=== PATIENT | male | born 1980 | race Caucasian/White ===

== ENCOUNTER 2017-02-10 09:31 | Emergency (ER) | payer OTHER ==
[~2017-02-10] VITALS: Ht 205.7 cm; Wt 122.5 kg
[2017-02-10 09:48] VITALS: BP 158/110
[2017-02-10] MEDS ORDERED: HYDROcodone/APAP 5/325MG 1 TAB TABLET PO ONE (10:00)
--- NOTE | 2017-02-10 10:20 | PHYS DOC ---
Past Medical History Past Medical History: No Pertinent History Past Surgical History: No Surgical History Alcohol Use: Heavy Drug Use: None Adult General Chief Complaint Chief Complaint: LOWER EXT PAIN [facility] HPI Patient is a 37 year old male presents to emergency Department stating approximately one week ago he had a rash in his left inguinal area. He states that the rash eventually went away on its own. He states that within the last 3 or 4 days the rash has returned he states that this morning he woke up and had severe pain in the left inguinal area. Patient states that the pain is a 1 out of a 10 at this time however whenever he moves or the area is touched the pain goes up to approximately an 8. Patient states he has not really taken anything for the pain and discomfort. He denies any problems with urination he denies any penile drainage. He denies being concerned for STDs. Patient denies any fever, chills or any nausea or vomiting. Review of Systems Review of Systems Constitutional: Denies fever or chills [] Eyes: Denies change in visual acuity, redness, or eye pain [] HENT: Denies nasal congestion or sore throat [] Respiratory: Denies cough or shortness of breath [] Cardiovascular: No additional information not addressed in HPI [] GI: Denies abdominal pain, nausea, vomiting, bloody stools or diarrhea [] : Denies dysuria or hematuria. Pain in the left inguinal area. Musculoskeletal: Denies back pain or joint pain [] Integument: rash denies skin lesions [] Neurologic: Denies headache, focal weakness or sensory changes [] Endocrine: Denies polyuria or polydipsia [] Current Medications Current Medications Current Medications Medications (Trade) Dose Ordered Sig/[facility] Start Time Stop Time Status Last Admin Dose Admin Acetaminophen/ Hydrocodone Bitart (Lortab 5/325) 2 tab 1X ONCE 02/10/17 10:00 02/10/17 10:01 DC 02/10/17 10:31 2 TAB Allergies Allergies Allergies Coded Allergies Type Severity Reaction Last Updated Verified No Known Drug Allergies 08/10/13 No Physical Exam Physical Exam Constitutional: Well developed, well nourished, no acute distress, non-toxic appearance. [] HENT: Normocephalic, atraumatic, bilateral external ears normal, oropharynx moist, no oral exudates, nose normal. [] Eyes: PERRLA, EOMI, conjunctiva normal, no discharge. [] Neck: Normal range of motion, no tenderness, supple, no stridor. [] Cardiovascular:Heart rate regular rhythm, no murmur [] Lungs & Thorax: Bilateral breath sounds clear to auscultation [] Abdomen: Bowel sounds normal, soft, no tenderness, no masses, no pulsatile masses. [] Skin: Warm, dry, no erythema, patient with a red raised rash noted in the left inguinal area. This area appears to be in a circular type appearance. Tenderness noted upon palpation. No abscesses noted. No drainage or discharge noted. Back: No tenderness Extremities: No tenderness, no cyanosis, no clubbing, ROM intact, no edema. [] Neurologic: Alert and oriented X 3, normal motor function, normal sensory function, no focal deficits noted. [] Psychologic: Affect normal, judgement normal, mood normal. [] Current Patient Data Vital Signs Vital Signs Date Time Temp Pulse Resp B/P (MAP) Pulse Ox O2 Delivery O2 Flow Rate FiO2 02/10/17 10:31 16 02/10/17 09:48 97.4 85 98 Room Air 97.4 Lab Values Laboratory Tests Test 02/10/17 11:31 Urine Collection Type Unknown Urine Color Yellow Urine Clarity Clear Urine pH 6.0 Urine Specific [place] 1.020 Urine Protein Negative mg/dL (NEG-TRACE) Urine Glucose (UA) Negative mg/dL (NEG) Urine Ketones (Stick) Negative mg/dL (NEG) Urine Blood Negative (NEG) Urine Nitrite Negative (NEG) Urine Bilirubin Negative (NEG) Urine Urobilinogen Dipstick 0.2 mg/dL (0.2 mg/dL) Urine Leukocyte Esterase Negative (NEG) Urine RBC 0 /HPF (0-2) Urine WBC 0 /HPF (0-4) Urine Squamous Epithelial Cells Occ /LPF Urine Bacteria 0 /HPF (0-FEW) Urine Mucus Marked /LPF EKG EKG [] Radiology/Procedures Radiology/Procedures [][facility] [address] [place] [address] IMAGING REPORT Signed PATIENT: PHOENIX ALATORRE ACCOUNT: [id number] : 1980 LOCATION: ER AGE: 37 SEX: M EXAM STATUS: REG ER ORD. PHYSICIAN: AGATA PRESLEY APRN REASON: pain and tenderness LT INNER UPPER THIGH, INGUINAL CREASE PROCEDURE: EXT NON VASC LTD LEFT Left upper thigh ultrasound, 02/10/2017: History: Swelling and rash The area of clinical concern in the upper inner thigh near the scrotum extending into the inguinal region was carefully scanned. There is subcutaneous edema in this region. No discrete fluid collection or mass is identified. No inguinal hernia was identified. IMPRESSION: Nonspecific subcutaneous edema without evidence of a mass or drainable abscess. DICTATED and SIGNED BY: KATH MEHTA MD DATE: 02/10/17 1110 CC: AGATA PRESLEY APRN; NO PCP; NON,STAFF ~ Course & Med Decision Making Course & Med Decision Making Pertinent Labs and Imaging studies reviewed. (See chart for details) Patient was provided with ultrasound findings as showing swelling and edematous. Patient will be discharged home with antifungal's to help with the ringworm. Also recommended ice packs on 20 minutes off 20 minutes several times a day. Tylenol or ibuprofen for pain and discomfort. Also recommended following up with primary care physician in the next 3-5 days. Signs and symptoms to return back to emergency department as been provided. [] Dragon Disclaimer Dragon Disclaimer This electronic medical record was generated, in whole or in part, using a voice recognition dictation system. Departure Departure Impression: Primary Impression: Ringworm Disposition: 01 HOME, SELF-CARE Condition: STABLE Referrals: NO PCP (PCP) Patient Instructions: Body Ringworm Additional Instructions: Activity as tolerated Medication as prescribed Ibuprofen 600-800 mg every 8 hours with food stop taking if you develop upset stomach Ice packs on 20 minutes off 20 minutes several times a day Keep the area clean an dry Followup with primary care provider in 3-5 days Return to emergency department as needed for signs and symptoms that become worse. Scripts Clotrimazole (CLOTRIMAZOLE) 15 Gm Cream..g. 1 AKASH TP BID, #30 GM Prov: AGATA PRESLEY APRN 02/10/17 AGATA PRESLEY APRN Feb 10, 2017 10:20
--- NOTE | 2017-02-10 11:15 | RAD ---
Left upper thigh ultrasound, 02/10/2017: History: Swelling and rash The area of clinical concern in the upper inner thigh near the scrotum extending into the inguinal region was carefully scanned. There is subcutaneous edema in this region. No discrete fluid collection or mass is identified. No inguinal hernia was identified. IMPRESSION: Nonspecific subcutaneous edema without evidence of a mass or drainable abscess.
[2017-02-10 11:41] LABS: BILIRUBIN,URINE NEGATIVE (NEG); GLUCOSE,URINE NEGATIVE (NEG); NITRITE,URINE NEGATIVE (NEG); PROTEIN,URINE NEGATIVE (NEG-TRACE); UROBILINOGEN,URINE 0.2 mg/dL (0.2 mg/dL)
[2017-02-10 12:00] LABS: BACTERIA,URINE 0 /HPF (0-FEW); RBC,URINE 0 /HPF (0-2); SQUAMOUS EPITHELIAL CELL,UR OCC /LPF; WBC,URINE 0 /HPF (0-4)
[2017-02-10] MEDS ORDERED: CLOT15CR4 TP (12:24)
== END 2017-02-10 12:42 | disposition home or self-care (01) ==
LOC: ER 09:31
DX: B35.9 Dermatophytosis, unspecified (principal)
CPT/HCPCS: 76882; 81001; 87491; 87591; 99285-25

== ENCOUNTER 2020-01-20 09:20 | Emergency (ER) | payer SELFPAY ==
[~2020-01-20] VITALS: Ht 203.2 cm; Wt 122.7 kg
[~2020-01-20 09:20] MED LIST: CLOT15CR23 TP
[2020-01-20] MEDS ORDERED: DIPH,PERTUSS(ACELL),TET VAC/PF 0.5 ML SYRINGE. VAX IM ONE (10:00)
[2020-01-20] MEDS ORDERED: MUPIROCIN 2 % TOPICAL CREAM 30GM TUBE. TP ONE (10:00)
[2020-01-20] MEDS ORDERED: fentaNYL PF VIAL 100 MCG/2 ML VIAL IM ONE (10:00)
[2020-01-20] MEDS ORDERED: OXYC1TAB15 PO (10:38)
[2020-01-20] MEDS ORDERED: MUPI22OI2 TP (10:38)
--- NOTE | 2020-01-20 10:39 | PHYS DOC ---
Past Medical History Past Medical History: No Pertinent History, Other Past Surgical History: No Surgical History Smoking Status: Current Every Day Smoker Additional Information: 1 PPD Alcohol Use: Heavy Additional Information: DRINKS "FEW DRINKS DAILY" Drug Use: None General Adult EDM: Chief Complaint: LOWEREXTREMITY INJURY HPI: HPI: Patient is a 40 year old male presents with his father with report of right lower ankle pain and swelling. Patient reports was playing football while on a float trip and ended up stepping on some loose gravel causing him to twist the ankle and fall backwards. Patient was subsequently seen in emergency department at "[facility] "in [place], [place]. Reports he was diagnosed with a "distal tibia fracture" and placed in a splint and given crutches and a Rx for hydrocodone. Reports he has several abrasions and cuts on his leg. Reports "they didn't know what they were doing". Reports they closed all the dirt and "[place] water" bugs into the splint with him. Denies fev er/chills. Denies head trauma or neck pain. Review of Systems: Review of Systems: Constitutional: Denies fever or chills Eyes: Denies redness or eye pain HENT: Denies nasal congestion or sore throat Respiratory: Denies cough or shortness of breath Cardiovascular: Denies chest pain or palpitations GI: Denies abdominal pain, nausea, or vomiting : Denies dysuria or hematuria Musculoskeletal: Reports right ankle pain, swelling, and bruising Integument: Reports abrasions to right leg Neurologic: Denies headache, focal weakness or sensory changes Complete systems were reviewed and found to be within normal limits, except as documented in this note. Current Medications: Current Medications Medications (Trade) Dose Ordered Sig/[facility] Start Time Stop Time Status Last Admin Dose Admin Diphtheria/ Tetanus/Acell Pertussis (ADACEL TDap SYRINGE) 0.5 ml ONCE ONCE 01/20/20 10:00 01/20/20 10:01 DC 01/20/20 10:15 0.5 ML Fentanyl Citrate (Fentanyl 2ml Vial) 75 mcg 1X ONCE 01/20/20 10:00 01/20/20 10:01 DC 01/20/20 10:04 75 MCG Mupirocin (Bactroban) 1 nhan 1X ONCE 01/20/20 10:00 01/20/20 10:01 DC 01/20/20 10:14 1 NHAN Allergies: Allergies: Allergies Coded Allergies Type Severity Reaction Last Updated Verified No Known Drug Allergies 08/10/13 No Physical Exam: PE: Constitutional: Well developed, well nourished, no acute distress, non-toxic appearance HENT: Normocephalic, atraumatic Eyes: Conjunctiva normal, no discharge Neck: Normal range of motion, no tenderness, supple Cardiovascular: Right PT and DP pulses +2, CR < 2 sec Lungs & Thorax: No respiratory distress, equal chest rise and fall Skin: Warm, dry, scattered abrasions to right lower leg, no signs of cellulitis noted, ecchymosis to right ankle Extremities: Right lateral malleolar tenderness, significant swelling noted, neurovascularly intact. No proximal fibular tenderness noted Neurologic: Alert and oriented X 3, no focal deficits noted Psychologic: Affect normal, judgment normal Current Patient Data: Vital Signs: Vital Signs Date Time Temp Pulse Resp B/P (MAP) Pulse Ox O2 Delivery O2 Flow Rate FiO2 01/20/20 10:04 16 96 Room Air 01/20/20 09:27 98.2 116 150/86 (107) 98.2 EKG: EKG: [] Radiology/Procedures: Radiology/Procedures: PROCEDURE: ANKLE RIGHT 3V, KNEE RIGHT 2V 01/20/2020 9:49 AM CLINICAL INDICATION:Pain, swelling bruising. Known fracture right ankle. COMPARISON:None TECHNIQUE:None. FINDINGS: Right ankle: There is an oblique fracture of the distal fibular diaphysis extending proximally from above the tibial plafond. There is widening of the distal tibiofibular syndesmosis and widening of the medial clear space measuring 8 mm. The talar dome is intact. There is diffuse soft tissue swelling. Right knee: No acute fracture or malalignment. Joint spaces are maintained. No significant joint effusion. IMPRESSION: 1. Oblique fracture of the distal fibular diaphysis with widening of the distal tibiofibular syndesmosis and medial clear space. 2. No fracture of the knee or visualized portion of the proximal tibia or fibula. Electronically signed by: Izabella Sims MD (01/20/2020 11:01 AM) [id number] Course & Med Decision Making: Course & Med Decision Making Pertinent Imaging studies reviewed. (See chart for details) Patient presents with report of known ankle fracture which paperwork from outside facility noted "distal tibial fracture" presents with continued pain and swelling with bruising after twisting fall while on a float trip. Limb neurovascularly intact. Splint taken down. Multiple abrasions noted. Wounds cleaned. Bactroban and clean dressing applied. Tetanus updated. Pain addressed. XRs obtained with finding of distal fibular fracture. Decision given need for continued treatment of abrasions to place patient in walking boot. Patient previously provided crutches and advised to continue to nonweight bear on that leg. Prescription for Percocet provided due to pain not well controlled with previously prescribed hydrocodone. Patient stable for discharge with outpatient follow-up with PCP/orthopedics. Orthopedic referral provided. Discussed findings and plan with patient and family, who acknowledge understanding and agreement. Zay Disclaimer: Zay Disclaimer: This electronic medical record was generated, in whole or in part, using a voice recognition dictation system. Splinting Splinting : Location: [facility] Pre-Made Type: walking boot Pre-Proc Neuro Vasc Exam: normal Post-Proc Neuro Vasc Exam: normal, unchanged from pre-exam Departure Departure Impression: Primary Impression: Fracture of distal fibula Qualified Codes: S82.831A - Other fracture of upper and lower end of right fibula, initial encounter for closed fracture Additional Impression: Abrasion of leg, right Qualified Codes: S80.811D - Abrasion, right lower leg, subsequent encounter Disposition: HOME, SELF-CARE Condition: STABLE Referrals: NO PCP (PCP) MAURICIO BORDEN MD Patient Instructions: Abrasion, [id number], Crutch Use, [id number], Fibular Fracture, Ankle, Adult, Treated with or without Immobilization Additional Instructions: ICE 20 min on and then leave off next 20 min to reduce swelling and discomfort. Repeat for next few days. Clean wounds daily with soap and water. Change dressing 2 times daily. Use prescribed antibiotic ointment with each dressing change. Scripts Oxycodone/Apap 5-325 (PERCOCET 5-325 MG TABLET ) 1 Each Tablet 1 TAB PO PRN Q6HRS PRN for PAIN, #16 TAB 0 Refills Prov: BATSHEVA FRANKEL DO 01/20/20 Mupirocin (MUPIROCIN OINTMENT) 22 Gm Oint...g. 1 NHAN TP TID for WOUND CARE, #1 TUBE Prov: BATSHEVA FRANKEL DO 01/20/20 Justicifation of Admission Dx: Justifications for Admission: Justification of Admission Dx: N/A BATSHEVA FRANKEL DO Jan 20, 2020 10:39
[2020-01-20 10:59] VITALS: BP 178/94
--- NOTE | 2020-01-20 11:04 | RAD ---
EXAM: ANKLE RIGHT 3V, KNEE RIGHT 2V 01/20/2020 9:49 AM CLINICAL INDICATION:Pain, swelling bruising. Known fracture right ankle. COMPARISON:None TECHNIQUE:None. FINDINGS: Right ankle: There is an oblique fracture of the distal fibular diaphysis extending proximally from above the tibial plafond. There is widening of the distal tibiofibular syndesmosis and widening of the medial clear space measuring 8 mm. The talar dome is intact. There is diffuse soft tissue swelling. Right knee: No acute fracture or malalignment. Joint spaces are maintained. No significant joint effusion. IMPRESSION: 1. Oblique fracture of the distal fibular diaphysis with widening of the distal tibiofibular syndesmosis and medial clear space. 2. No fracture of the knee or visualized portion of the proximal tibia or fibula. Electronically signed by: Izabella Sims MD (01/20/2020 11:01 AM) [id number]
== END 2020-01-20 10:59 | disposition home or self-care (01) ==
LOC: ER 09:20
DX: S82.831A Other fracture of upper and lower end of right fibula, initial encounter for closed fracture (principal); S80.811A Abrasion, right lower leg, initial encounter; M25.571 Pain in right ankle and joints of right foot; F17.200 Nicotine dependence, unspecified, uncomplicated; F10.10 Alcohol abuse, uncomplicated; W01.0XXA Fall on same level from slipping, tripping and stumbling without subsequent striking against object, initial encounter; Y93.89 Activity, other specified; Y92.89 Other specified places as the place of occurrence of the external cause; Y99.8 Other external cause status
CPT/HCPCS: 73560; 73610; 90471; 90715; 96372; 99284; J3010